=== PATIENT | male | born 1985 | race Caucasian/White ===

== ENCOUNTER 2017-02-25 00:46 | Emergency (ER) | payer SELFPAY ==
[~2017-02-25] VITALS: Ht 185.4 cm; Wt 70.9 kg
[2017-02-25 00:50] VITALS: BP 127/81
[2017-02-25] MEDS ORDERED: CARBAMIDE PEROXIDE EAR DROPS 6.5%, 15ML ONE (01:20)
[2017-02-25] MEDS ORDERED: CARBAMIDE PEROXIDE EAR DROPS 6.5%, 15ML RIGHT EAR ONE (01:30)
== END 2017-02-25 02:35 | disposition home or self-care (01) ==
LOC: ED 02:28
DX: H61.21 Impacted cerumen, right ear (principal)
CPT/HCPCS: 99283